=== PATIENT | male | born 1990 | race American Indian/Alaskan Native ===

== ENCOUNTER → 2018-10-03 | Day surgery (SDC) | payer BC ==
[~2018-10-03] MED LIST: ACETAMINOPHEN 1000 MG/100 ML IV ONE; CEFAZOLIN SOD 1 GM/NS 50ML 50 ML IV ONE; DEXAMETHASONE SOD PHOS INJ 4 MG/ML VIAL ONE; FENTANYL CITRATE/PF 100MCG/2 ML INJ ONE; KETOROLAC TROMETHAMINE 30 MG/ML VIAL ONE; LIDOCAINE HCL 2% LOCAL INJ 5 ML SDV VIAL INJ ONE; LISINOPRIL10 MG PO; MIDAZOLAM HCL 2 MG/2 ML VIAL ONE; ONDANSETRON HCL INJ 2MG/ML 2ML 2 MG/ML VIAL ONE; PROPOFOL IV EMULSION 10 MG/ML 20 ML VIAL ONE; SEVOFLURANE INHAL SOLN 250 ML PEN BTL ONE
[2018-10-03 14:00] VITALS: BP 133/80
--- NOTE | 2018-10-03 19:19 | Operative Report ---
DATE OF PROCEDURE: 10/03/2018 SURGEON: Steven Torres MD CASE FITTER: Magan Perez. PREOPERATIVE DIAGNOSIS: Right knee lateral meniscal tear. POSTOPERATIVE DIAGNOSIS: Right knee lateral meniscal tear. PROCEDURES: Right knee arthroscopy, partial lateral meniscectomy. INDICATIONS: The patient is a 28-year-old gentleman, who has clinic signs and symptoms consistent with a right knee lateral meniscal tear. He has failed conservative management and would like to proceed with arthroscopic intervention. The risks and benefits of this procedure have been discussed in detail. He states he understands and wishes to proceed. PROCEDURE IN DETAIL: The patient was brought to the operating room and placed under general anesthetic. His right lower extremity was prepped and draped in a sterile manner. A preoperative time-out was performed. A tourniquet placed on the upper thigh had been inflated to 300 mmHg. Standard arthroscopy portals were established. The knee was insufflated with sterile saline and systematically inspected. 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 The trochlear groove was well preserved. The suprapatellar pouch, medial and lateral gutters were unremarkable. The medial compartment and cruciate ligaments were inspected, probed and photographed. There was no abnormalities. There was a tear of the lateral meniscus. This had a combination of a radial and horizontal component. This was debrided back to a hook stable margin using a combination of biting forceps and a mechanical shaver. The arthroscopic instruments were then removed. The portal incisions were closed with nylon stitches. A sterile bandage was applied. The patient was extubated and transported to the recovery room in stable condition. There was no blood loss and all needle and sponge counts were correct. Steven Torres MD DR/MODL /[id number]
== END | disposition home or self-care (01) ==
LOC: OR 10:28
PROVIDERS: ATTEND Specialist
DX: S83.271A Complex tear of lateral meniscus, current injury, right knee, initial encounter (principal); M22.41 Chondromalacia patellae, right knee; G47.30 Sleep apnea, unspecified; I10 Essential (primary) hypertension; E66.01 Morbid (severe) obesity due to excess calories; X58.XXXA Exposure to other specified factors, initial encounter; Y93.67 Activity, basketball; Y99.8 Other external cause status; Z01.810 Encounter for preprocedural cardiovascular examination; Z68.38 Body mass index [BMI] 38.0-38.9, adult
CPT/HCPCS: 29881; 93005; J0131; J0690; J1100; J1885; J2001; J2250; J2405; J2704